=== PATIENT | male | born 1995 | race African-American/Black ===

== ENCOUNTER 2021-11-04 18:46 | Emergency (ER) | payer SELFPAY ==
[~2021-11-04] VITALS: Ht 213.4 cm; Wt 78.2 kg
[2021-11-04 18:47] VITALS: TEMP 99
[2021-11-04 20:50] VITALS: BP 128/79; PULSE 69
== END 2021-11-04 20:45 ==
LOC: COL.ER 18:46
DX: S43.101A Unspecified dislocation of right acromioclavicular joint, initial encounter (principal); S63.501A Unspecified sprain of right wrist, initial encounter; S16.1XXA Strain of muscle, fascia and tendon at neck level, initial encounter; V47.5XXA Car driver injured in collision with fixed or stationary object in traffic accident, initial encounter; Y92.411 Interstate highway as the place of occurrence of the external cause